=== PATIENT | male | born 1995 | race African-American/Black ===

== ENCOUNTER 2020-07-20 03:57 | Emergency (ER) | payer OTHER ==
[~2020-07-20] VITALS: Ht 172.7 cm; Wt 65.0 kg
[2020-07-20 04:02] VITALS: BP 165/95
[2020-07-20] MEDS ORDERED: AMOX500C2 PO (04:19)
== END 2020-07-20 04:27 | disposition home or self-care (01) ==
LOC: ER 04:01
DX: J02.9 Acute pharyngitis, unspecified (principal)
CPT/HCPCS: 99283

== ENCOUNTER 2022-02-02 19:25 | Emergency (ER) | payer SELFPAY ==
[~2022-02-02] VITALS: Ht 172.7 cm; Wt 60.3 kg
--- NOTE | 2022-02-02 22:12 | NUR ---
patient bilateral ears have been irrigated
[2022-02-02 22:23] VITALS: BP 138/80
== END 2022-02-02 22:25 | disposition home or self-care (01) ==
LOC: ER 19:26
DX: H61.23 Impacted cerumen, bilateral (principal); F17.210 Nicotine dependence, cigarettes, uncomplicated
CPT/HCPCS: 69209; 99282

== ENCOUNTER 2022-07-03 10:18 | Emergency (ER) | payer SELFPAY ==
[~2022-07-03] VITALS: Ht 172.7 cm; Wt 59.1 kg
[2022-07-03 10:30] VITALS: BP 124/80
== END 2022-07-03 12:04 | disposition home or self-care (01) ==
LOC: ER 10:18
DX: H11.31 Conjunctival hemorrhage, right eye (principal)
CPT/HCPCS: 99282